=== PATIENT | male | born 1930 | race African-American/Black ===

== ENCOUNTER 2017-07-01 18:32 | Inpatient (IN) | payer MEDICARE, OTHER ==
[~2017-07-01] VITALS: Ht 180.3 cm; Wt 71.9 kg
[2017-07-01 21:08] LABS: BASOPHILS % 0.8 % (0.0-2.0); EOSINOPHILS % 0.5 % (0.0-5.0); HEMATOCRIT. 41.1 % (42.0-52.0); LYMPHOCYTES % 25.6 % (20.0-50.0); MEAN CORPUSCULAR HEMOGLOBIN 31.3 pg (28.0-32.0); MEAN CORPUSCULAR VOLUME 92.1 fL (80.0-94.0); MEAN PLATELET VOLUME 8.3 fl (7.4-10.4); MONOCYTES % 11.2 % (2.0-8.0); NEUTROPHILS % 61.9 % (40.0-76.0); PLATELET 203 x1000/uL (130-400); RED BLOOD CELL COUNT 4.46 mill/uL (4.7-6.1); RED CELL DISTRIBUTION WIDTH 13.8 % (11.6-14.6)
[2017-07-01 21:24] LABS: CHLORIDE 93 mEq/L (98-107)
[2017-07-01 21:25] LABS: INR 1.1; PROTHROMBIN TIME 11.3 sec (9.4-11.6)
[2017-07-01 23:03] LABS: CLARITY URINE CLEAR (CLEAR); COLOR URINE YELLOW (YELLOW); KETONES URINE TRACE (NEGATIVE); LEUKOCYTE ESTERASE URINE NEGATIVE (NEGATIVE); NITRITE URINE NEGATIVE (NEGATIVE); OCCULT BLOOD URINE NEGATIVE (NEGATIVE); PH URINE 6.5 (4.5-8.0); PROTEIN URINE NEGATIVE (NEGATIVE); SPECIFIC GRAVITY URINE 1.017 (1.005-1.030)
[2017-07-02] MEDS ORDERED: HYDRALAZINE 20MG/ML VIAL IV ONE (02:45)
[2017-07-02] MEDS ORDERED: DIPHENHYDRAMINE 50MG/ML VIAL IV PRN (10:30)
[2017-07-02] MEDS ORDERED: MORPHINE SULFATE 2 MG/ML CPJ (NOT FOR IM USE) IV PRN (10:30)
[2017-07-02] MEDS ORDERED: HYDROCODONE/ACETAMINOPHEN 5/325MG TABLET PO PRN (10:30)
[2017-07-02] MEDS ORDERED: GUAIFENESIN 200MG/10ML SUGAR FREE UDC PO PRN (10:30)
[2017-07-02] MEDS ORDERED: ACETAMINOPHEN 650MG/20.3ML UDC GT PRN (10:30)
[2017-07-02] MEDS ORDERED: ACETAMINOPHEN 325MG TABLET PO PRN (10:30)
[2017-07-02] MEDS ORDERED: DEXTROSE 50% WATER 50ML SYRINGE IV PRN (10:30)
[2017-07-02] MEDS ORDERED: ACETAMINOPHEN 650MG SUPP PR PRN (10:30)
[2017-07-02] MEDS ORDERED: DOCUSATE SODIUM 100MG CAPSULE PO PRN (10:30)
[2017-07-02] MEDS ORDERED: MAGNESIUM/ALUMINUM HYDROXIDE/SIMETHICONE 30ML UDC PO PRN (10:30)
[2017-07-02] MEDS ORDERED: CLONIDINE 0.1MG TABLET PO PRN (10:30)
[2017-07-02] MEDS ORDERED: ONDANSETRON HCL 4MG/2ML INJ IV PRN (10:30)
[2017-07-02] MEDS ORDERED: IPRATROPIUM/ALBUTEROL 0.5-3(2.5)MG/3ML NEB INH PRN (10:30)
[2017-07-02] MEDS ORDERED: NA PHOS,M-B/NA PHOS,DI-BA ENEMA 118ML PR PRN (10:30)
[2017-07-02 10:54] LABS: BASOPHILS % 0.3 % (0.0-2.0); EOSINOPHILS % 0.2 % (0.0-5.0); HEMATOCRIT. 40.3 % (42.0-52.0); HEMOGLOBIN. 13.5 g/dL (14.0-18.0); LYMPHOCYTES % 16.2 % (20.0-50.0); MEAN CORPUSCULAR HEMOGLOBIN 30.7 pg (28.0-32.0); MEAN CORPUSCULAR VOLUME 92.1 fL (80.0-94.0); MEAN PLATELET VOLUME 7.9 fl (7.4-10.4); MONOCYTES % 8.9 % (2.0-8.0); NEUTROPHILS % 74.4 % (40.0-76.0); PLATELET 221 x1000/uL (130-400); RED BLOOD CELL COUNT 4.38 mill/uL (4.7-6.1); RED CELL DISTRIBUTION WIDTH 13.8 % (11.6-14.6)
[2017-07-02 11:00] LABS: CHLORIDE 96 mEq/L (98-107)
[2017-07-02] MEDS ORDERED: CEFTRIAXONE 1 G PREMIX 50 ML IV SCH (11:30)
[2017-07-02] MEDS ORDERED: AMLODIPINE 10MG TABLET PO NR (11:31)
[2017-07-02] MEDS: BLOOD SUGAR DIAGNOSTIC STRIP TEST SCH ×3 (13:56→21:01)
[2017-07-02] MEDS: ENOXAPARIN 40MG/0.4ML SYR SUBCUT SCH (13:56)
[2017-07-02] MEDS: INSULIN LISPRO 100 UNITS/ML SUBCUT SCH ×3 (13:59→21:18)
[2017-07-02 16:00] VITALS: BP 149/73
[2017-07-02 16:28] VITALS: BP 159/72
[2017-07-02 16:48] VITALS: BP 159/72
[2017-07-02] MEDS ORDERED: VANCOMYCIN 1,750 MG in DEXT 5% WATER 250 ML IV NR (18:00)
[2017-07-02 20:00] VITALS: BP 149/71
[2017-07-02] MEDS: SODIUM CHLORIDE 0.9% INJ 3ML FLUSH IVF SCH (21:01)
[2017-07-03 06:34] LABS: BASOPHILS % 0.4 % (0.0-2.0); HEMATOCRIT. 37.2 % (42.0-52.0); HEMOGLOBIN. 12.9 g/dL (14.0-18.0); LYMPHOCYTES % 23.5 % (20.0-50.0); MEAN CORPUSCULAR HEMOGLOBIN 31.7 pg (28.0-32.0); MEAN CORPUSCULAR VOLUME 91.6 fL (80.0-94.0); MEAN PLATELET VOLUME 8.2 fl (7.4-10.4); MONOCYTES % 10.9 % (2.0-8.0); NEUTROPHILS % 64.2 % (40.0-76.0); PLATELET 216 x1000/uL (130-400); RED BLOOD CELL COUNT 4.06 mill/uL (4.7-6.1); RED CELL DISTRIBUTION WIDTH 13.4 % (11.6-14.6)
[2017-07-03] MEDS: SODIUM CHLORIDE 0.9% INJ 3ML FLUSH IVF SCH ×3 (06:34→21:11)
[2017-07-03] MEDS: BLOOD SUGAR DIAGNOSTIC STRIP TEST SCH ×4 (06:34→21:11)
[2017-07-03] MEDS: INSULIN LISPRO 100 UNITS/ML SUBCUT SCH ×4 (06:39→21:11)
[2017-07-03 06:58] LABS: CHLORIDE 97 mEq/L (98-107); HDL CHOLESTEROL 77 mg/dL (40-59); LDL CHOLESTEROL 63 mg/dL (5-100)
[2017-07-03 08:00] VITALS: BP 115/76
[2017-07-03] MEDS: AMLODIPINE 10MG TABLET PO SCH (09:41)
[2017-07-03] MEDS: ENOXAPARIN 40MG/0.4ML SYR SUBCUT SCH (09:41)
[2017-07-03] MEDS ORDERED: POTASSIUM CHLORIDE 20MEQ TABLET SR PO NR (11:45)
[2017-07-03 12:00] VITALS: BP 148/60
[2017-07-03] MEDS: VANCOMYCIN 1250MG in DEXTROSE 5% WATER 250ML IV SCH (13:09)
[2017-07-03 16:00] VITALS: BP 158/84
[2017-07-03 20:00] VITALS: BP 164/86
[2017-07-04] VITALS: BP 124/71
[2017-07-04 04:00] VITALS: BP 140/77
[2017-07-04] MEDS: VANCOMYCIN 1250MG in DEXTROSE 5% WATER 250ML IV SCH (05:39)
[2017-07-04] MEDS: SODIUM CHLORIDE 0.9% INJ 3ML FLUSH IVF SCH ×3 (05:39→21:41)
[2017-07-04] MEDS: INSULIN LISPRO 100 UNITS/ML SUBCUT SCH ×4 (06:15→22:17)
[2017-07-04] MEDS: BLOOD SUGAR DIAGNOSTIC STRIP TEST SCH ×4 (06:15→21:58)
[2017-07-04 08:00] VITALS: BP 157/79
[2017-07-04] MEDS: AMLODIPINE 10MG TABLET PO SCH (09:56)
[2017-07-04] MEDS: SILVER SULFADIAZINE 1% CREAM 50GM TOP SCH (09:57)
[2017-07-04] MEDS: ENOXAPARIN 40MG/0.4ML SYR SUBCUT SCH (09:57)
[2017-07-04 12:00] VITALS: BP 161/83
[2017-07-04] MEDS ORDERED: ASPI-986 PO (14:49)
[2017-07-04] MEDS ORDERED: DILT60TA35 PO (14:49)
[2017-07-04] MEDS ORDERED: CLON0.1T14 PO (14:49)
[2017-07-04 16:00] VITALS: BP 145/77
[2017-07-04] MEDS: FUROSEMIDE 40MG/4ML VIAL IVP SCH (16:03)
[2017-07-04] MEDS: DILTIAZEM HCL 30MG TABLET PO SCH ×2 (16:03→21:27)
[2017-07-04 18:12] LABS: BASOPHILS % 0.9 % (0.0-2.0); EOSINOPHILS % 1.3 % (0.0-5.0); HEMATOCRIT. 36.6 % (42.0-52.0); HEMOGLOBIN. 12.7 g/dL (14.0-18.0); LYMPHOCYTES % 30.4 % (20.0-50.0); MEAN CORPUSCULAR HEMOGLOBIN 31.9 pg (28.0-32.0); MEAN CORPUSCULAR VOLUME 92.2 fL (80.0-94.0); MEAN PLATELET VOLUME 8.1 fl (7.4-10.4); MONOCYTES % 13.8 % (2.0-8.0); NEUTROPHILS % 53.6 % (40.0-76.0); PLATELET 231 x1000/uL (130-400); RED BLOOD CELL COUNT 3.97 mill/uL (4.7-6.1)
[2017-07-04 18:22] LABS: CHLORIDE 98 mEq/L (98-107)
[2017-07-04 19:47] LABS: *AMPHETAMINES SCREEN URINE NEGATIVE (NEGATIVE); *BARBITURATES SCREEN URINE NEGATIVE (NEGATIVE); *BENZODIAZEPINES SCREEN URINE NEGATIVE (NEGATIVE); *COCAINE SCREEN URINE NEGATIVE (NEGATIVE); CANNABINOID URINE SCREEN NEGATIVE (NEGATIVE); METHADONE URINE SCREEN NEGATIVE (NEGATIVE); OPIATES URINE SCREEN NEGATIVE (NEGATIVE); PHENCYCLIDINE URINE SCREEN NEGATIVE (NEGATIVE)
[2017-07-04 20:00] VITALS: BP 137/70
[2017-07-05] VITALS (7 sets, daily range): BP systolic 89–164; BP diastolic 45–72
[2017-07-05] MEDS: VANCOMYCIN 1250MG in DEXTROSE 5% WATER 250ML IV SCH (01:50)
[2017-07-05] MEDS: DILTIAZEM HCL 30MG TABLET PO SCH ×2 (06:38→14:00)
[2017-07-05] MEDS: BLOOD SUGAR DIAGNOSTIC STRIP TEST SCH ×2 (06:39→11:45)
[2017-07-05] MEDS: SODIUM CHLORIDE 0.9% INJ 3ML FLUSH IVF SCH ×2 (06:40→13:21)
[2017-07-05 06:48] LABS: BASOPHILS % 0.8 % (0.0-2.0); EOSINOPHILS % 1.4 % (0.0-5.0); HEMATOCRIT. 35.5 % (42.0-52.0); HEMOGLOBIN. 12.1 g/dL (14.0-18.0); LYMPHOCYTES % 10.4 % (20.0-50.0); MEAN CORPUSCULAR HEMOGLOBIN 31.2 pg (28.0-32.0); MEAN CORPUSCULAR VOLUME 91.7 fL (80.0-94.0); MEAN PLATELET VOLUME 8.3 fl (7.4-10.4); MONOCYTES % 13.2 % (2.0-8.0); NEUTROPHILS % 74.2 % (40.0-76.0); PLATELET 205 x1000/uL (130-400); RED BLOOD CELL COUNT 3.87 mill/uL (4.7-6.1)
[2017-07-05] MEDS: ENOXAPARIN 40MG/0.4ML SYR SUBCUT SCH (08:08)
[2017-07-05] MEDS: FUROSEMIDE 40MG/4ML VIAL IVP SCH (08:08)
[2017-07-05] MEDS: SILVER SULFADIAZINE 1% CREAM 50GM TOP SCH (08:08)
[2017-07-05] MEDS: INSULIN LISPRO 100 UNITS/ML SUBCUT SCH ×2 (08:09→13:03)
[2017-07-05 08:36] LABS: CHLORIDE 95 mEq/L (98-107)
[2017-07-05] MEDS ORDERED: LOSA25TA12 PO (10:26)
[2017-07-05] MEDS ORDERED: GABA-529 PO (10:27)
[2017-07-05] MEDS ORDERED: ATEN50TA PO (10:32)
[2017-07-05] MEDS ORDERED: ASPI-1079 PO (10:33)
[2017-07-05] MEDS ORDERED: ATOR20TA PO (10:33)
[2017-07-05] MEDS ORDERED: METF100P3 MC (10:34)
[2017-07-05] MEDS ORDERED: TAMS0.4C31 PO (10:35)
[2017-07-05] MEDS ORDERED: GABAPENTIN 100MG CAPSULE PO SCH (11:40)
[2017-07-05] MEDS ORDERED: ATENOLOL 50 MG TABLET PO SCH (11:45)
[2017-07-05] MEDS ORDERED: ASPIRIN 325MG TABLET PO SCH (11:45)
[2017-07-05 11:59] LABS: T4 FREE 1.28 ng/dL (0.76-1.46)
[2017-07-05] MEDS ORDERED: VANCOMYCIN 1250MG in DEXTROSE 5% WATER 250ML IV SCH (14:00)
[2017-07-05] MEDS ORDERED: ATEN-42 PO (14:41)
[2017-07-05] MEDS ORDERED: SODIUM CHLORIDE 0.9% 250 ML IV ONE (14:45)
[2017-07-05 15:36] LABS: VITAMIN B12 SERUM 497 pg/mL (211-911)
[2017-07-05 16:57] LABS: CREATINE KINASE 157 IU/L (39-308); CREATINE KINASE MB FRACTION 0.8 ng/mL (0.5-3.6)
[2017-07-05] MEDS ORDERED: ATORVASTATIN CALCIUM 20MG TABLET PO SCH (21:00)
[2017-07-06] MEDS ORDERED: ATENOLOL 50 MG TABLET PO SCH (09:00)
== END 2017-07-05 17:25 | disposition home health service (06) | DRG 638 ==
LOC: ER 20:56 → 5WST 07-02 00:46 → EDBEDREQ 07-02 11:13 → ENRESERV 07-02 15:27
PROVIDERS: ADMIT Family Medicine; ATTEND Family Medicine
DX: E11.621 Type 2 diabetes mellitus with foot ulcer (principal); E46 Unspecified protein-calorie malnutrition; L97.929 Non-pressure chronic ulcer of unspecified part of left lower leg with unspecified severity; L97.919 Non-pressure chronic ulcer of unspecified part of right lower leg with unspecified severity; E11.51 Type 2 diabetes mellitus with diabetic peripheral angiopathy without gangrene; I48.91 Unspecified atrial fibrillation; I44.1 Atrioventricular block, second degree; I11.0 Hypertensive heart disease with heart failure; I50.30 Unspecified diastolic (congestive) heart failure; S91.301A Unspecified open wound, right foot, initial encounter; I48.92 Unspecified atrial flutter; W18.39XA Other fall on same level, initial encounter; F17.200 Nicotine dependence, unspecified, uncomplicated; R62.7 Adult failure to thrive; Y93.89 Activity, other specified; Y92.89 Other specified places as the place of occurrence of the external cause; Y99.8 Other external cause status; Z72.89 Other problems related to lifestyle; Z79.82 Long term (current) use of aspirin; Z79.899 Other long term (current) drug therapy; Z68.22 Body mass index [BMI] 22.0-22.9, adult
CPT/HCPCS: 36415; 71045; 73630; 80048; 80061; 80202; 80305; 81001; 82550; 82553; 82607; 82962; 83036; 83735; 83880; 84439; 84443; 84484; 85379; 85651; 86140; 93005; 93306; 96372; 96374; 96375; 97116; 97162; 97530; 99285; J0360; J0696; J1650; J1815; J1940; J2270; J3370; J7040; J7050; J7060